=== PATIENT | male | born 1980 | race Caucasian/White ===

== ENCOUNTER 2018-02-02 22:12 | Emergency (ER) | payer OTHER ==
[~2018-02-02] VITALS: Ht 182.9 cm; Wt 83.9 kg
[~2018-02-02 22:12] MED LIST: CYCL10 PO; Naprosyn500 MG PO
[2018-02-02] MEDS ORDERED: Prednisone20 MG PO (22:44)
== END 2018-02-02 23:16 | disposition home or self-care (01) ==
LOC: ER 22:12
DX: M54.5 Low back pain (principal); F17.200 Nicotine dependence, unspecified, uncomplicated
CPT/HCPCS: 96372; 99283-25; J1885